=== PATIENT | male | born 1975 | race Two or more races ===

== ENCOUNTER 2023-01-17 08:13 | Emergency (ER) | payer OTHER, SELFPAY ==
--- NOTE | 2023-01-17 08:18 | ED.URI ---
HPI - URI/Sore Throat General Chief Complaint: Ear Stated Complaint: sorethroat,bilateral ear pain Time Seen by Provider: 01/17/23 08:18 Source: patient Mode of arrival: ambulatory Limitations: no limitations History of Present Illness HPI Narrative: Mr. Mendez is a 47-year-old male patient presenting to the clinic today with complaints of sore throat and bilateral ear pain since Sunday. He reports he has had some body aches but no known fever. No known exposure to anybody with COVID, flu, or strep MD elicited complaint: sore throat and other (Bilateral ear pain) Related Data Home Medications Medication Instructions Recorded Confirmed azelastine 137 mcg (0.1 %) nasal intranasal 01/17/23 spray aerosol cetirizine 10 mg tablet mg 01/17/23 fluticasone propionate 50 intranasal 01/17/23 mcg/actuation nasal spray,suspension lisinopril 20 mg tablet mg 01/17/23 rosuvastatin 10 mg tablet mg 01/17/23 Allergies Allergy/AdvReac Type Severity Reaction Status Date / Time No Known Allergies Allergy Verified 01/17/23 08:40 Review of Systems Review of Systems: Pertinent positives per HPI. Patient denies any fever, rash, headache, visual changes, dizziness, shortness of breath, chest pain, palpitations, nausea, vomiting, diarrhea, constipation, abdominal pain, or any urinary issues. PMFSH Comments At the time of my signature, I reviewed and agree with the nursing past medical, surgical, social, and family history. There is no relevant family history pertinent to the patient complaint. Exam Narrative: General: Well-developed, well nourished, in no apparent distress Head: Normocephalic, atraumatic Eyes: Pupils equally round and reactive to light bilaterally, EOM intact, sclera and conjunctive clear, no discharge, lids normal Ears: TMs intact and congested, ear canals clear, no drainage, grossly hearing normal. Nose: Nares patent, clear nasal discharge, mild inflammation, no sinus tenderness. Mouth: Oral pharynx without lesions or masses, good dentition, MMM. Postnasal drip Neck: Supple, trachea midline, no enlargement of anterior or posterior cervical nodes, no thyroid masses or goiter palpable. Cardio: Regular rate and rhythm, s1 and s2 normal, no murmur appreciated. Resp: Clear to auscultation bilaterally, no rhonchi, rales, wheezing or rubs Course Course Emergency Course: Portions of this record may have been created with voice recognition software. Level of Care: Express Care Visit Vital Signs Vital signs: Vital Signs Temperature 37.1 C 01/17/23 08:43 Pulse Rate 103 H 01/17/23 08:43 Respiratory Rate 20 01/17/23 08:43 Blood Pressure 142/92 H 01/17/23 08:43 Pulse Oximetry 100 01/17/23 08:43 Oxygen Delivery Room Air 01/17/23 08:43 Temperature 37.1 C 01/17/23 08:43 Pulse Rate 103 H 01/17/23 08:43 Respiratory Rate 20 01/17/23 08:43 Blood Pressure 142/92 H 01/17/23 08:43 Pulse Oximetry 100 01/17/23 08:43 Oxygen Delivery Room Air 01/17/23 08:43 Vital signs reviewed MDM - URI/Sore Throat MDM Narrative Medical decision making narrative: At the time of visit patient is resting comfortably on exam table. COVID testing was positive in the clinic today. Prescription for molnupiravir was sent to the pharmacy. Supportive measures were discussed with the patient he voiced understanding of the discharge instructions agrees to treatment plan. Differential Diagnosis Differential diagnosis: Likely upper respiratory infection, otitis media, sinusitis, viral infection, bronchitis, influenza, pharyngitis and other (COVID) Lab Data Labs: Lab Results 01/17/23 Range/Units Unknown POC SARS CoV-2 Ag Positive (Negative) Discharge Plan Discharge Clinical Impression: COVID-19 Patient Disposition: Home, Self-Care Condition: Stable Instructions: COVID-19 (Coronavirus Disease 2019) (ED), How to Recover from COVID-19 at Home (ED) Additional Ins
[2023-01-17 08:43] VITALS: BP 142/92; PULSE 103; RESP 20; TEMP 37.1; O2SAT 100
== END 2023-01-17 09:11 | disposition home or self-care (01) ==
PROVIDERS: Emergency Provider Nurse Practitioner Family
DX: U07.1 COVID-19 (principal); E78.00 Pure hypercholesterolemia, unspecified; I10 Essential (primary) hypertension
CPT/HCPCS: 87426; 99203; C9803; G0463